=== PATIENT | female | born 1965 | race Caucasian/White ===

== ENCOUNTER 2016-09-08 16:32 | Emergency (ER) ==
[2016-09-08 16:42] VITALS: BP 145/85; TEMP 99.2; BMI 26.4
--- NOTE | 2016-09-08 17:41 | CT ---
EXAM: CT cervical spine without contrast HISTORY: Pain, fall COMPARISON: 12/06/2014 TECHNIQUE: CT cervical spine performed without intravenous contrast. Coronal and sagittal reformat steven images obtained. FINDINGS: Patient is status post anterior spinal fusion C5 - C6-C7 with interbody spacers. Hardware appears intact. No fracture. No subluxation. No multilevel facet and uncovertebral hypertrophy. Degenerative changes result in mild multilevel neural foraminal narrowing. Central canal grossly p atent. Prevertebral soft tissues appear normal. Granulomatous calcification right lung apex. Mode rate centrilobular emphysema. Lung apices. Biapical scarring. There are atherosclerotic carotid ca lcifications.1 IMPRESSION: 1. No fracture or subluxation. 2. Anterior spinal fusion C5-C7. Mild degenerative changes. 3. Emphysema.
--- NOTE | 2016-09-08 18:05 | ED.PDOC ---
General ED Provider: Dr. SHEEBA HEALY Chief Complaint: Fall Stated Complaint: FALL NECK AND WRIST PAIN Time Seen by Physician: 16:34 Mode of Arrival: Walk-In Information Source: Patient Exam Limitations: No limitations Primary Care Provider: ALDO FINN Nursing and Triage Documentation Reviewed and Agree: Yes Review of Systems - Review Of Systems Constitutional: Reports: No symptoms Eyes: Reports: No symptoms Ears, Nose, Mouth, Throat: Reports: No symptoms Respiratory: Reports: No symptoms Cardiac: Reports: No symptoms GI: Reports: No symptoms : Reports: No symptoms Musculoskeletal: Reports: Neck pain Skin: Reports: No symptoms Neurological: Reports: No symptoms Endocrine: Reports: No symptoms Hematologic/Lymphatic: Reports: No symptoms All Other Systems: Reviewed and Negative Past Medical History - Past Medical History Previously Healthy: Yes Endocrine: Reports: None Cardiovascular: Reports: None Respiratory: Reports: None Hematological: Reports: None Gastrointestinal: Reports: None Genitourinary: Reports: None Neuro/Psych: Reports: None Musculoskeletal: Reports: None Cancer: Reports: None Last Menstrual Period: 2011 - Surgical History General Surgical History: Reports: Unknown - Family History Family History: Reports: Unknown - Social History Smoking Status: Heavy tobacco smoker Hx Substance Use: No Alcohol Screening: None Physical Exam - Physical Exam Appearance: Well-appearing, No pain distress, Well-nourished Eyes: JAIRO, EOMI, Conjunctiva clear ENT: Ears normal, Nose normal, Oropharynx normal Respiratory: Airway patent, Breath sounds clear, Breath sounds equal, Respirations nonlabored Cardiovascular: RRR, Pulses normal, No rub, No murmur GI/: Soft, Nontender, No masses, Bowel sounds normal, No Organomegaly Musculoskeletal: Normal strength, ROM intact, No edema, No calf tenderness Skin: Warm, Dry, Normal color Neurological: Sensation intact, Motor intact, Reflexes intact, Cranial nerves intact, Alert, Oriented Psychiatric: Affect appropriate, Mood appropriate Interpretation - Radiology Interpretation Radiology Interpretation By: Radiologist Radiology Results: No acute changes Critical Care Note - Critical Care Note Total Time (mins): 0 Course - Course Orders, Labs, Meds: Orders Category Date Time Status CT CERVICAL SPINE W/O CONTRAST Stat RADS 09/08/16 16:48 Ordered HAND, RIGHT 3 VIEWS Stat RADS 09/08/16 16:48 Ordered WRIST, RIGHT 3 VIEWS Stat RADS 09/08/16 16:48 Ordered Vital Signs: Temp Pulse Resp BP Pulse Ox 09/08/16 16:32 99.2 F 95 H 20 145/85 H 94 L Departure - Departure Time of Disposition: 18:06 Disposition: HOME SELF-CARE Discharge Problem: Chronic neck pain, Pain in wrist Instructions: Neck Pain (ED), Wrist Injury (ED) Condition: Good Pt referred to PMD for follow-up: No Additional Instructions: Please call your Family Physician as soon as possible to schedule a follow-up appointment. Allergies/Adverse Reactions: Allergies No Known Allergies Allergy (Unverified 09/08/16 16:42) Home Medications: Ambulatory Orders Clonazepam 1 mg PO Q6HR PRN 09/08/16 Gabapentin [Neurontin] 300 mg PO 1-3XD 09/08/16
--- NOTE | 2016-09-08 18:26 | DI ---
EXAM: Righthand three view HISTORY: Hand pain FINDINGS / IMPRESSION: No acute bony or articular abnormality is seen. Mild interphalangeal osteoa rthritic change.
--- NOTE | 2016-09-08 18:27 | DI ---
EXAM: Right wrist three views HISTORY: Fall with injury and pain FINDINGS/IMPRESSION: No giana or articular abnormality. Negative exam.
== END 2016-09-08 18:37 | disposition home or self-care (01) ==
LOC: ED 16:32
DX: M54.2 Cervicalgia (principal); G89.29 Other chronic pain; S69.91XA Unspecified injury of right wrist, hand and finger(s), initial encounter; W19.XXXA Unspecified fall, initial encounter; F17.210 Nicotine dependence, cigarettes, uncomplicated
CPT/HCPCS: 99283

== ENCOUNTER 2017-04-25 10:58 | Outpatient (CLI) ==
--- NOTE | 2017-04-25 12:22 | DI ---
EXAM: Three views of the cervical spine HISTORY: Neck pain with history of fusion hardware. COMPARISON: Cervical spine x-ray 10/30/[address] cervical spine 09/08/2016 FINDINGS: There is facet arthropathy present. There is no acute compression fracture. Anterior fusi on hardware at C5-C7 is present with no loosening or fracture of hardware. The posterior processes a re normal. Prevertebral soft tissues are normal. The odontoid process is unremarkable. IMPRESSION: 1. No acute compression fracture or subluxation. 2. Fusion hardware from C5-C7 with no hardware fracture or loosening. 3. Mild facet arthropathy.
== END 2017-04-25 10:59 | disposition home or self-care (01) ==
LOC: RAD 10:58
PROVIDERS: ATTEND Orthopaedic Surgery
DX: M54.2 Cervicalgia (principal)